=== PATIENT | female | born 1970 | race African-American/Black ===

== ENCOUNTER 2018-08-03 11:38 | Inpatient (IN) | payer OTHER ==
[2018-08-03 17:13] VITALS: BMI 25.4
--- NOTE | 2018-08-03 18:31 | HP ---
"COWS - Scale Resting Pulse: 1= [place] 81-100 Sweatin=Flushed/Facial Moisture Restless Observation: 1= Difficult to Sit Still Pupil Size: 1= Pupils >than Normal (Pupils at 3 mm) Bone or Joint Aches: 1= Mild Discomfort Runny Nose/ Eye Tearin= None GI Upset > 30mins: 2= Nausea/Diarrhea (Has cramps and nausea w/o diarrhea) Tremor Observation: 4= Gross Tremor/Twitching Yawning Observation: 0= None Anxiety or Irritability: 1=Feels Anxious/Irritable Goose Flesh Skin: 0=Smooth Skin COWS Score: 13 CIWA Score Nausea/Vomitin-Mild Nausea/No Vomiting Muscle Tremors: 4-Moderate,w/Arms Extend Anxiety: 3 Agitation: 1-Slight > Activity Paroxysmal Sweats: 3 (Moisture on brows w/o beads of sweat) Orientation: 0-Oriented Tacttile Disturbances: 0-None Auditory Disturbances: 0-None Visual Disturbances: 0-None Headache: 2-Mild CIWA-Ar Total Score: 14 - Admission Criteria [facility] Guidelines: Admission for Medically Managed Detox: Requires at least one of the followin. CIWA greater than 12 2. Seizures within the past 24 hours 3. Delirium tremens within the past 24 hours 4. Hallucinations within the past 24 hours 5. Acute intervention needed for co occurring medical disorder 6. Acute intervention needed for co occurring psychiatric disorder 7. Severe withdrawal that cannot be handled at a lower level of care (continued vomiting, continued diarrhea, abnormal vital signs) requiring intravenous medication and/or fluids 8. Admission [facility] Chief Complaint: Here for heroin and alcohol withdrawal. Allergies/Adverse Reactions: Allergies Allergy/AdvReac Type Severity Reaction Status Date / Time No Known Allergies Allergy Verified 08/03/18 17:16 History of Present Illness: Alcohol use disorder began at age 18. Heroin use disorder began at age 44. Cocaine use disorder began at age 44. Nicotine use disorder began at age 18. Does not want Nicotine patch. Will accept gum. Denies hx seizures, blackouts, overdoses. Denies significant PMH/PSH. Only length of sobriety has been while in detox or rehab. Search Terms: Annette Morales, 1970 Search Date: 08/03/2018 06:15:47 PM The Drug Utilization Report below displays all of the controlled substance prescriptions, if any, that your patient has filled in the last twelve months. The information displayed on this report is compiled from pharmacy submissions to the Department, and accurately reflects the information as submitted by the pharmacies. This report was requested by: Gregoria Hammer | Reference #: [id number] Others' Prescriptions Patient Name: Edwina Hoskins Date: 1970 Address: [address] [place] [address] Sex: Female Rx Written Rx Dispensed Drug Quantity Days Supply Prescriber Name 06/22/2018 06/22/2018 codeine-guaifen 10-100 mg/5 ml 118ml 12 Harish Rod T (EVERT-C) 05/31/2018 05/31/2018 alprazolam 0.25 mg tablet 60 30 Sabrina Conde NP 05/22/2018 05/23/2018 diphenoxylate-atropine 2.5-0.025 mg tablet 120 30 Orly Thomas 03/30/2018 04/06/2018 alprazolam 0.25 mg tablet 60 30 Sabrina Conde NP Patient Name: Edwina Hoskins Date: 1970 Address: [address] [place] [address] Sex: Female Rx Written Rx Dispensed Drug Quantity Days Supply Prescriber Name 03/09/2018 03/09/2018 alprazolam 0.25 mg tablet 30 30 Sabrina Conde NP 11/22/2017 12/02/2017 alprazolam 0.25 mg tablet 60 30 Sabrina Conde NP 10/17/2017 10/17/2017 codeine-guaifen 10-100 mg/5 ml 120ml 12 Nettie Llanes 09/07/2017 09/16/2017 alprazolam 0.25 mg tablet 30 30 Sabrina Conde NP Patient Name: Annette Morales Date: 1970 Address: [address] [address] Sex: Female Rx Written Rx Dispensed Drug Quantity Days Supply Prescriber Name 12/13/2017 12/20/2017 suboxone 8 mg-2 mg sl film 14 7 Soraida Subramanian, AMBER 12/13/2017 12/13/2017 suboxone 8 mg-2 mg sl film 14 7 Soraida Subramanian NP 12/12/2017 12/12/2017 suboxone 4 mg-1 mg sl film 6 3 Soraida Subramanian NP Exam Limitations: No Limitations - Ebola screening Have you traveled outside of the country in the last 21 days: No Have you had contact with anyone from an Ebola affected area: No Have you been sick,other than usual withdrawal symptoms: No Do you have a fever: No - Review of Systems Constitutional: Chills, Diaphoresis EENT: reports: Blurred Vision (Wears glasses) Respiratory: reports: No Symptoms reported Cardiac: reports: No Symptoms Reported GI: reports: Nausea (r/t withdrawal) : reports: No Symptoms Reported Musculoskeletal: reports: Back Pain (Chronic sharp low back pain when going from sitting to standing. Pain is a '8'. Worse since feeling withdrawal. Decreases with medication.), Other (achy bones r/t withdrawal) Integumentary: reports: No Symptoms Reported Neuro: reports: Tremors Endocrine: reports: No Symptoms Reported Hematology: reports: No Symptoms Reported Psychiatric: reports: Judgement Intact, Orientated x3, Agitated, Anxious ( States anxious. Denies thoughts of harming self or others.) Patient History - Patient Medical History Hx Anemia: No Hx Asthma: No Hx Chronic Obstructive Pulmonary Disease (COPD): No Hx Cardiac Disorders: No Hx Hypertension: No Hx Hypercholesterolemia: No Hx Seizures: No Hx Diabetes: No Hx Gastrointestinal Disorders: No Hx Liver Disease: No Hx Genitourinary Disorders: No Hx Sexually Transmitted Disorders: No Hx Renal Disease (ESRD): No Hx Human Immunodeficiency Virus (HIV): No (2018) Hx Hepatitis C: No Hx Depression: Yes Hx Suicide Attempt: No Hx Schizophrenia: No - Patient Surgical History Past Surgical History: Yes Hx Section: Yes (X2) Other Surgical History: Myomectomy 5 months ago [facility] - PPD History Previous Implant?: Yes Documented Results: Negative w/o proof Implanted On Prior [facility] Admission?: No PPD to be Administered?: Yes - Reproductive History Patient is a Female of Child Bearing Age (11 -55 yrs old): Yes Last Menstrual Period: 08/03/18 Patient : No ( States not sexually active) - Smoking Cessation Smoking history: Current every day smoker Have you smoked in the past 12 months: Yes Aproximately how many cigarettes per day: 10 Hx Chewing Tobacco Use: No Initiated information on smoking cessation: Yes 'Breaking Loose' booklet given: 08/03/18 - Substance & Tx. History Hx Alcohol Use: Yes Hx Substance Use: Yes Substance Use Type: Alcohol, Cocaine, Heroin Hx Substance Use Treatment: Yes (detox, rehab, ) - Substances Abused Heroin Route: Inhalation Frequency: Daily Amount used: 10-15 bags Age of first use: 44 Date of Last Use: 08/02/18 Alcohol Route: Oral Frequency: Daily Amount used: 2 pints-fifth Age of first use: 18 Date of Last Use: 08/02/18 Crack Route: Smoking Frequency: Daily Amount used: $50 Age of first use: 40 Date of Last Use: 08/03/18 Admission Physical Exam [facility] - Vital Signs Vital Signs: Vital Signs - 24 hr 08/03/18 17:10 Temperature 98.5 F Pulse Rate 85 Respiratory 20 Rate Blood Pressure 134/83 - Physical General Appearance: Yes: Mild Distress, Tremorous, Sweating, Anxious HEENTM: Yes: Hearing grossly Normal, MINA (Pupils = 3 mm), Pharynx Normal Respiratory: Yes: Chest Non-Tender, Lungs Clear, Normal Breath Sounds, No Respiratory Distress Neck: Yes: No masses,lesions,Nodules, Supple Breast: Yes: Breast Exam Deferred Cardiology: Yes: Regular Rhythm, Regular Rate, S1, S2 Abdominal: Yes: Flat, Soft, Increased Bowel Sounds Genitourinary: Yes: Within Normal Limits Back: Yes: Normal Inspection (No masses/protrusions palpated) Musculoskeletal: Yes: full range of Motion, Gait Steady Extremities: Yes: Normal Capillary Refill, Normal Range of Motion, Non-Tender, Tremors (gross tremors of hands upon extension) Neurological: Yes: fondant puff maker II-XII NML intact, Fully Oriented, Alert, Motor Strength 5/5, Normal Mood/Affect Integumentary: Yes: Normal Color, Dry, Warm Lymphatic: Yes: Within Normal Limits - Diagnostic (1) Alcohol dependence with uncomplicated withdrawal Current Visit: Yes Status: Acute (2) Opioid dependence with withdrawal Current Visit: Yes Status: Acute (3) Cocaine dependence, uncomplicated Current Visit: Yes Status: Chronic (4) Nicotine dependence, uncomplicated Current Visit: Yes Status: Chronic Qualifiers: Nicotine product type: cigarettes Qualified Code(s): F17.210 - Nicotine dependence, cigarettes, uncomplicated (5) Low back pain Current Visit: Yes Status: Acute Qualifiers: Chronicity: chronic Back pain laterality: midline Sciatica presence: without sciatica Qualified Code(s): M54.5 - Low back pain; G89.29 - Other chronic pain Cleared for Admission [facility] - Detox or Rehab [facility] Level of Care: Medically Managed Detox Regimen/Protocol: Methadone/Librium [facility] Breath Alcohol Content Breath Alcohol Content: 0 Urine Pregancy Test - Result Urine Test Results: Negative- NO Line Present Urine Drug Screen - Results Drug Screen Negative: No Urine Drug Screen Results: PREMA-Cocaine, OPI-Opiates, BZO-Benzodiazepines, MTD- Methadone, FEN-Fentanyl"
[2018-08-03] MEDS ORDERED: ACETAMINOPHEN 325 MG TABLET (FP) PO PRN (18:56)
[2018-08-03] MEDS ORDERED: MENTHOL/PHENOL 1 EACH UD MM PRN (18:56)
[2018-08-03] MEDS ORDERED: NICOTINE POLACRILEX 2 MG GUM BUC PRN (18:56)
[2018-08-03] MEDS ORDERED: MAGNESIUM HYDROX 2400MG/30ML ORAL SUSPENSION 30 ML CUP PO PRN (18:56)
[2018-08-03] MEDS ORDERED: chlordiazePOXIDE HCL 25 MG CAPSULE PO ONE (18:56)
[2018-08-03] MEDS ORDERED: MAG HYDROX/AL HYDROX/SIMETH 30 ML UNIT-DOSE CUP PO PRN (18:56)
[2018-08-03] MEDS ORDERED: LOPERAMIDE HCL 2 MG CAPSULE PO PRN (18:56)
[2018-08-03] MEDS ORDERED: METHADONE HCL 10 MG TABLET (FOR DETOX USE ONLY) PO ONE ×2 (18:56→23:00)
[2018-08-03] MEDS ORDERED: MAGNESIUM CITRATE 300 ML BOTTLE PO PRN (18:56)
[2018-08-03] MEDS ORDERED: IBUPROFEN 400 MG TABLET (FP) PO PRN (18:56)
[2018-08-03] MEDS: THIAMINE HCL 100 MG TABLET (FP) PO SCH (22:42)
[2018-08-03] MEDS: chlordiazePOXIDE HCL 25 MG CAPSULE PO SCH (22:44)
[2018-08-03 23:25] LABS: URINE APPEARANCE SLCLOUDY; URINE BILIRUBIN NEGATIVE (<2.0 mg/dL); URINE COLOR YELLOW; URINE GLUCOSE (UA) NEGATIVE (NEGATIVE); URINE KETONE NEGATIVE (NEGATIVE); URINE LEUK ESTERASE NEGATIVE (NEGATIVE); URINE NITRITE NEGATIVE (NEGATIVE); URINE PROTEIN NEGATIVE (NEGATIVE); URINE UROBILINOGEN NEGATIVE mg/dL (0.2-1.0)
[2018-08-03 23:30] LABS: EPI CELLS RARE /HPF (FEW); URINE BACTERIA RARE /hpf (NONE SEEN); URINE MUCUS RARE
[2018-08-04] MEDS: chlordiazePOXIDE HCL 25 MG CAPSULE PO SCH ×4 (05:51→22:17)
[2018-08-04] MEDS: hydrOXYzine PAMOATE 50 MG CAPSULE (FP) PO PRN ×3 (05:54→22:18)
[2018-08-04] MEDS ORDERED: METHADONE HCL 10 MG TABLET (FOR DETOX USE ONLY) PO SCH (10:00)
[2018-08-04] MEDS: PRENATAL VITAMINS W/ FOLIC ACID TABLET (FP) PO SCH (10:14)
[2018-08-04 11:20] LABS: ALBUMIN 2.6 g/dl (3.4-5.0); ALK PHOS 91 U/L (45-117); ANION GAP 6 MMOL/L (8-16); BILIRUBIN,TOTAL 0.3 mg/dL (0.2-1); BLOOD UREA NITROGEN 15 mg/dL (7-18); CALCIUM 8.5 mg/dL (8.5-10.1); CHLORIDE 104 mmol/L (98-107); CO2 28 mmol/L (21-32); CREATININE 0.7 mg/dL (0.55-1.3); GLUCOSE,RANDOM 213 mg/dL (74-106); POTASSIUM 4.2 mmol/L (3.5-5.1); SGOT/AST 29 U/L (15-37); SGPT/ALT 63 U/L (13-61); SODIUM 138 mmol/L (136-145); TOT PROT 6.6 g/dl (6.4-8.2)
[2018-08-04 11:30] LABS: HEMATOCRIT 32.5 % (32.4-45.2); HEMOGLOBIN 10.2 GM/dL (10.7-15.3); MCH 25.8 pg (25.7-33.7); MCHC 31.4 g/dl (32.0-36.0); MEAN CELL VOLUME 82.3 fl (80-96); MEAN PLT VOLUME 9.4 fl (7.5-11.1); PLATELET COUNT 181 K/MM3 (134-434); RBC 3.95 M/mm3 (3.60-5.2); RDW 19.1 % (11.6-15.6); WHITE BLOOD COUNT 3.1 K/mm3 (4.0-10.0)
[2018-08-04] MEDS: chlordiazePOXIDE HCL 25 MG CAPSULE PO PRN (13:14)
--- NOTE | 2018-08-04 14:56 | CONSULT ---
[facility] Psychiatric Consult - Data Date of interview: 08/04/18 Admission source: [facility] Identifying data: First admission to [facility] for this 47 y/o AA female seeking detoxification treatment, on , for heroin, alcohol and cocaine dependence. Patient is single, a mother of one, homeless, unemployed and deprived of income. Substance Abuse History: Confirmed by the patient in my interview. Details in current [facility] report as follows : Smoking history: Current every day smoker. Have you smoked in the past 12 months: Yes. Aproximately how many cigarettes per day: 10. Hx Chewing Tobacco Use: No. Initiated information on smoking cessation: Yes. 'Breaking Loose' booklet given: 08/03/18. - Substance & Tx. History. Hx Alcohol Use: Yes. Hx Substance Use: Yes. Substance Use Type: Alcohol, Cocaine, Heroin. Hx Substance Use Treatment: Yes (detox, rehab, ). - Substances Abused. Heroin. Route: Inhalation. Frequency: Daily. Amount used: 10-15 bags. Age of first use: 44. Date of Last Use: 08/02/18. Alcohol. Route: Oral. Frequency: Daily. Amount used: 2 pints-fifth. Age of first use: 18. Date of Last Use: 08/02/18. Crack. Route: Smoking. Frequency: Daily. Amount used: $50. Age of first use: 40. Date of Last Use: 08/03/18 Medical History: History of two sections and recent myomectomy. Psychiatric History: No reported history of psychiatric hospitalizations. Patient states that she has been diagnosed with MDD + Anxiety Disorder. No connection with psychiatric OPD care providers. Ms Morales relies on her primary care physician for refills of seroquel (100 mg/hs). No history of suicide attempts. Physical/Sexual Abuse/Trauma History: Patient declines to discuss this domain. Additional Comment: Urine Drug Screen Results: PREMA-Cocaine, OPI-Opiates, BZO- Benzodiazepines, MTD-Methadone, FEN-Fentanyl. Noted. Mental Status Exam - Mental Status Exam Alert and Oriented to: Time, Place, Person Cognitive Function: Good Patient Appearance: Unkempt, Disheveled Mood: Nervous, Withdrawn, Anxious Affect: Mood Congruent, Constricted Patient Behavior: Fatigued, Cooperative Speech Pattern: Clear, Appropriate Voice Loudness: Normal Thought Process: Intact, Goal Oriented Thought Disorder: Not Present Hallucinations: Denies Suicidal Ideation: Denies Homicidal Ideation: Denies Insight/Judgement: Poor Sleep: Poorly, Difficulty falling asleep Appetite: Good Muscle strength/Tone: Normal Gait/Station: Normal Psychiatric Findings - Problem List ([place] 1, 2,3) (1) Alcohol dependence with uncomplicated withdrawal Current Visit: Yes Status: Acute (2) Opioid dependence with withdrawal Current Visit: Yes Status: Acute (3) Cocaine dependence, uncomplicated Current Visit: Yes Status: Acute (4) Nicotine dependence, uncomplicated Current Visit: Yes Status: Acute Qualifiers: Nicotine product type: cigarettes Qualified Code(s): F17.210 - Nicotine dependence, cigarettes, uncomplicated (5) Substance induced mood disorder Current Visit: Yes Status: Acute (6) Insomnia Current Visit: Yes Status: Acute - Initial Treatment Plan Initial Treatment Plan: Psychoeducation. Sleep hygiene. Detoxification. Psychotherapy (supportive, group). NA/AA meetings recommended. Patient is made aware of the current FDA-approved formulations for relapse prevention and she is encouraged to enroll in psychiatric aftercare + substance abuse program. Verbalizes NO interest. Motivational sessions will continue throughout hospital course. Seroquel 100 mg po hs at patient's specific request. Ordered. Side effects/benefits discussed with the patient. Consent (verbal) : given. Observation.
--- NOTE | 2018-08-04 15:07 | PN ---
[facility] CIWA - CIWA Score Nausea/Vomitin-No Nausea/No Vomiting Muscle Tremors: None Anxiety: 5 Agitation: 5 Paroxysmal Sweats: 2 Orientation: 0-Oriented Tacttile Disturbances: 0-None Auditory Disturbances: 0-None Visual Disturbances: 0-None Headache: 0-None Present CIWA-Ar Total Score: 12 S COWS - Scale Resting Pulse: 0= [place] 80 or Below Sweatin=Flushed/Facial Moisture Restless Observation: 1= Difficult to Sit Still Pupil Size: 0= Normal to Room Light Bone or Joint Aches: 2= Severe Diffuse Aches Runny Nose/ Eye Tearin= None GI Upset > 30mins: 0= None Tremor Observation of Outstretched Hands: 0= None Yawning Observation: 0= None Anxiety or Irritability: 2=Irritable/Anxious Goose Flesh Skin: 0=Smooth Skin COWS Score: 7 [facility] Progress Note (SOAP) Subjective: PATIENT C/O BODY ACHES, RESTLESSNESS, SWEATING AND ANXIETY Objective: 08/04/18 15:05 Laboratory Tests 08/03/18 08/04/18 08/04/18 23:10 07:30 07:30 WBC 3.1 L RBC 3.95 Hgb 10.2 L Hct 32.5 MCV 82.3 MCH 25.8 MCHC 31.4 L RDW 19.1 H Plt Count 181 MPV 9.4 Sodium 138 Potassium 4.2 Chloride 104 Carbon Dioxide 28 Anion Gap 6 L BUN 15 Creatinine 0.7 Creat Clearance w eGFR > 60 Random Glucose 213 H Calcium 8.5 Total Bilirubin 0.3 AST 29 ALT 63 H Alkaline Phosphatase 91 Total Protein 6.6 Albumin 2.6 L Urine Color Yellow Urine Appearance Slcloudy Urine pH 6.0 Ur Specific [place] 1.023 Urine Protein Negative Urine Glucose (UA) Negative Urine Ketones Negative Urine Blood 2+ H Urine Nitrite Negative Urine Bilirubin Negative Urine Urobilinogen Negative Ur Leukocyte Esterase Negative Urine WBC (Auto) 7 Urine RBC (Auto) 57 Ur Epithelial Cells Rare Urine Bacteria Rare Urine Mucus Rare RPR Titer 08/04/18 07:30 WBC RBC Hgb Hct MCV MCH MCHC RDW Plt Count MPV Sodium Potassium Chloride Carbon Dioxide Anion Gap BUN Creatinine Creat Clearance w eGFR Random Glucose Calcium Total Bilirubin AST ALT Alkaline Phosphatase Total Protein Albumin Urine Color Urine Appearance Urine pH Ur Specific [place] Urine Protein Urine Glucose (UA) Urine Ketones Urine Blood Urine Nitrite Urine Bilirubin Urine Urobilinogen Ur Leukocyte Esterase Urine WBC (Auto) Urine RBC (Auto) Ur Epithelial Cells Urine Bacteria Urine Mucus RPR Titer Nonreactive PE: SKIN WARM AND MOIST ALERT AND ORIENTED X 3 EXT FULL ROM, NO EDEMA AMB AD RADHA IRRITABLE/YELLING AT STAFF/ANXIOUS Assessment: 08/04/18 15:07 WITHDRAWAL SX Plan: CONITNUE DETOX ENCOURAGE ORAL FLUIDS CONTINUE TO MONITOR
[2018-08-04] MEDS: THIAMINE HCL 100 MG TABLET (FP) PO SCH (22:17)
[2018-08-04] MEDS: MELATONIN 5 MG TABLETS PO PRN (22:17)
[2018-08-05] MEDS: chlordiazePOXIDE HCL 25 MG CAPSULE PO SCH ×3 (05:46→17:24)
[2018-08-05] MEDS: PRENATAL VITAMINS W/ FOLIC ACID TABLET (FP) PO SCH (10:21)
[2018-08-05] MEDS: METHADONE HCL 5 MG TABLET (FOR DETOX USE ONLY) PO SCH (10:22)
[2018-08-05] MEDS: hydrOXYzine PAMOATE 50 MG CAPSULE (FP) PO PRN (12:44)
--- NOTE | 2018-08-05 14:03 | PN ---
[facility] Progress Note Note: Psychiatrist composition tile layer notes: As per nursing report patient started on: Seroquel 100mg po qh
--- NOTE | 2018-08-05 14:17 | PN ---
[facility] CIWA - CIWA Score Nausea/Vomitin-No Nausea/No Vomiting Muscle Tremors: 3 Anxiety: 2 Agitation: 2 Paroxysmal Sweats: 1-Minimal Palms Moist Orientation: 0-Oriented Tacttile Disturbances: 1-Very Mild Itch/Numbness Auditory Disturbances: 0-None Visual Disturbances: 0-None Headache: 1-Very Mild CIWA-Ar Total Score: 10 [facility] COWS - Scale Resting Pulse: 1= [place] 81-100 Sweatin= Chills/Flushing Restless Observation: 1= Difficult to Sit Still Pupil Size: 0= Normal to Room Light Bone or Joint Aches: 1= Mild Discomfort Runny Nose/ Eye Tearin= Nasal Congestion GI Upset > 30mins: 1= Stomach Cramp Tremor Observation of Outstretched Hands: 1= Tremor [place], Not Seen Yawning Observation: 1= 1-2x During Session Anxiety or Irritability: 1=Feels Anxious/Irritable Goose Flesh Skin: 0=Smooth Skin COWS Score: 9 S Progress Note (SOAP) Subjective: sweat tremor restlessness body aches back pain muscle cramp Objective: 08/05/18 14:17 Vital Signs Temperature 97.1 F L 08/05/18 09:46 Pulse Rate 73 08/05/18 09:46 Respiratory Rate 16 08/05/18 09:46 Blood Pressure 148/99 08/05/18 09:46 O2 Sat by Pulse Oximetry (%) Laboratory Last Values WBC 3.1 K/mm3 (4.0-10.0) L 08/04/18 07:30 RBC 3.95 M/mm3 (3.60-5.2) 08/04/18 07:30 Hgb 10.2 GM/dL (10.7-15.3) L 08/04/18 07:30 Hct 32.5 % (32.4-45.2) 08/04/18 07:30 MCV 82.3 fl (80-96) 08/04/18 07:30 MCH 25.8 pg (25.7-33.7) 08/04/18 07:30 MCHC 31.4 g/dl (32.0-36.0) L 08/04/18 07:30 RDW 19.1 % (11.6-15.6) H 08/04/18 07:30 Plt Count 181 K/MM3 (134-434) 08/04/18 07:30 MPV 9.4 fl (7.5-11.1) 08/04/18 07:30 Sodium 138 mmol/L (136-145) 08/04/18 07:30 Potassium 4.2 mmol/L (3.5-5.1) 08/04/18 07:30 Chloride 104 mmol/L (98-107) 08/04/18 07:30 Carbon Dioxide 28 mmol/L (21-32) 08/04/18 07:30 Anion Gap 6 MMOL/L (8-16) L 08/04/18 07:30 BUN 15 mg/dL (7-18) 08/04/18 07:30 Creatinine 0.7 mg/dL (0.55-1.3) 08/04/18 07:30 Creat Clearance w eGFR > 60 (>60) 08/04/18 07:30 Random Glucose 213 mg/dL (74-106) H 08/04/18 07:30 Calcium 8.5 mg/dL (8.5-10.1) 08/04/18 07:30 Total Bilirubin 0.3 mg/dL (0.2-1) 08/04/18 07:30 AST 29 U/L (15-37) 08/04/18 07:30 ALT 63 U/L (13-61) H 08/04/18 07:30 Alkaline Phosphatase 91 U/L (45-117) 08/04/18 07:30 Total Protein 6.6 g/dl (6.4-8.2) 08/04/18 07:30 Albumin 2.6 g/dl (3.4-5.0) L 08/04/18 07:30 Urine Color Yellow 08/03/18 23:10 Urine Appearance Slcloudy 08/03/18 23:10 Urine pH 6.0 (5.0-8.0) 08/03/18 23:10 Ur Specific [place] 1.023 (1.010-1.035) 08/03/18 23:10 Urine Protein Negative (NEGATIVE) 08/03/18 23:10 Urine Glucose (UA) Negative (NEGATIVE) 08/03/18 23:10 Urine Ketones Negative (NEGATIVE) 08/03/18 23:10 Urine Blood 2+ (NEGATIVE) H 08/03/18 23:10 Urine Nitrite Negative (NEGATIVE) 08/03/18 23:10 Urine Bilirubin Negative (<2.0 mg/dL) 08/03/18 23:10 Urine Urobilinogen Negative mg/dL (0.2-1.0) 08/03/18 23:10 Ur Leukocyte Esterase Negative (NEGATIVE) 08/03/18 23:10 Urine WBC (Auto) 7 /hpf (3-5) 08/03/18 23:10 Urine RBC (Auto) 57 /hpf (0-3) 08/03/18 23:10 Ur Epithelial Cells Rare /HPF (FEW) 08/03/18 23:10 Urine Bacteria Rare /hpf (NONE SEEN) 08/03/18 23:10 Urine Mucus Rare 08/03/18 23:10 RPR Titer Nonreactive (NONREACTIVE) 08/04/18 07:30 lab noted Assessment: 08/05/18 14:21 withdrawal sx Plan: continue detox
[2018-08-05] MEDS: chlordiazePOXIDE HCL 25 MG CAPSULE PO PRN (14:34)
--- NOTE | 2018-08-05 19:32 | EKG ---
Test Reason : Blood Pressure : / mmHG Vent. Rate : 085 BPM Atrial Rate : 085 BPM P-R Int : 142 ms QRS Dur : 076 ms QT Int : 376 ms P-R-T Axes : 066 005 007 degrees QTc Int : 447 ms NORMAL SINUS RHYTHM NORMAL ECG NO PREVIOUS ECGS AVAILABLE Confirmed by MONSE RAMIREZ MD ([id number]) on 08/05/2018 7:32:31 PM Referred By: Confirmed By:MONSE RAMIREZ MD
[2018-08-05] MEDS ORDERED: QUEtiapine FUMARATE 50 MG TABLET PO SCH (22:00)
[2018-08-05] MEDS: THIAMINE HCL 100 MG TABLET (FP) PO SCH (22:15)
[2018-08-05] MEDS: chlordiazePOXIDE 5 MG CAPSULE PO SCH (22:16)
[2018-08-05] MEDS: MELATONIN 5 MG TABLETS PO PRN (22:16)
[2018-08-06] MEDS: chlordiazePOXIDE 5 MG CAPSULE PO SCH ×2 (06:30→11:15)
--- NOTE | 2018-08-06 09:19 | DS ---
[facility] Detox Discharge Summary Admission Date: 08/03/18 - History Present History: Alcohol Dependence, Cocaine Dependence, Opioid Dependence - Physical Exam Results Vital Signs: Vital Signs Temperature 97.9 F 08/06/18 07:36 Pulse Rate 73 08/06/18 07:36 Respiratory Rate 18 08/06/18 07:36 Blood Pressure 106/61 08/06/18 07:36 O2 Sat by Pulse Oximetry (%) - Treatment Hospital Course: Discharged Condition Good - Medication Discharge Medications: Ambulatory Orders Quetiapine Fumarate [Seroquel -] 100 mg PO HS 08/03/18 - Diagnosis (1) Alcohol dependence with uncomplicated withdrawal Current Visit: Yes Status: Acute (2) Cocaine dependence, uncomplicated Current Visit: Yes Status: Acute (3) Insomnia Current Visit: Yes Status: Acute (4) Low back pain Current Visit: Yes Status: Acute Qualifiers: Chronicity: chronic Back pain laterality: midline Sciatica presence: without sciatica Qualified Code(s): M54.5 - Low back pain; G89.29 - Other chronic pain (5) Nicotine dependence, uncomplicated Current Visit: Yes Status: Acute Qualifiers: Nicotine product type: cigarettes Qualified Code(s): F17.210 - Nicotine dependence, cigarettes, uncomplicated (6) Opioid dependence with withdrawal Current Visit: Yes Status: Acute (7) Substance induced mood disorder Current Visit: Yes Status: Acute - AMA Did Patient Leave Against Medical Advice: Yes (refused continued tx; pt states going home)
[2018-08-06 09:48] VITALS: BP 118/70; PULSE 105; TEMP 98.2
[2018-08-06] MEDS: METHADONE HCL 5 MG TABLET (FOR DETOX USE ONLY) PO SCH (11:15)
[2018-08-06] MEDS: PRENATAL VITAMINS W/ FOLIC ACID TABLET (FP) PO SCH (11:15)
[2018-08-06] MEDS ORDERED: chlordiazePOXIDE HCL 10 MG CAPSULE PO SCH (23:00)
[2018-08-07] MEDS ORDERED: METHADONE HCL 10 MG TABLET (FOR DETOX USE ONLY) PO SCH (10:00)
[2018-08-08] MEDS ORDERED: METHADONE HCL 5 MG TABLET (FOR DETOX USE ONLY) PO SCH (06:00)
== END 2018-08-06 09:45 | disposition left against medical advice (07) | DRG 770 ==
LOC: YASAS 11:38 → Y6N 18:07
PROC: HZ2ZZZZ Detoxification Services for Substance Abuse Treatment (ICD-10-PCS; principal; 2018-08-03)
DX: F11.23 Opioid dependence with withdrawal (principal); F10.230 Alcohol dependence with withdrawal, uncomplicated; F14.20 Cocaine dependence, uncomplicated; F17.210 Nicotine dependence, cigarettes, uncomplicated; F19.24 Other psychoactive substance dependence with psychoactive substance-induced mood disorder; F32.9 Major depressive disorder, single episode, unspecified; G47.00 Insomnia, unspecified; M54.5 Low back pain; G89.29 Other chronic pain; Z59.0 Homelessness
CPT/HCPCS: 36415; 80053; 81003; 81015; 85027; 86593; 93005; 93010

== ENCOUNTER 2018-10-09 08:18 | Inpatient (IN) | payer OTHER ==
[2018-10-09 08:47] VITALS: BMI 24.3
--- NOTE | 2018-10-09 09:14 | HP ---
COWS - Scale Resting Pulse: 0= [place] 80 or Below Sweatin= No chills or Flushing Restless Observation: 1= Difficult to Sit Still Pupil Size: 0= Normal to Room Light Bone or Joint Aches: 2= Severe Diffuse Aches Runny Nose/ Eye Tearin= Runny Nose/Eyes GI Upset > 30mins: 1= Stomach Cramp Tremor Observation: 0= None Yawning Observation: 0= None Anxiety or Irritability: 2=Irritable/Anxious Goose Flesh Skin: 0=Smooth Skin COWS Score: 8 CIWA Score Nausea/Vomitin-Mild Nausea/No Vomiting Muscle Tremors: 2 Anxiety: 4-Mod. Anxious/Guarded Agitation: 1-Slight > Activity Paroxysmal Sweats: No Perspiration Orientation: 0-Oriented Tacttile Disturbances: 0-None Auditory Disturbances: 0-None Visual Disturbances: 0-None Headache: 0-None Present CIWA-Ar Total Score: 8 - Admission Criteria [facility]ASAS Guidelines: Admission for Medically Managed Detox: Requires at least one of the followin. CIWA greater than 12 2. Seizures within the past 24 hours 3. Delirium tremens within the past 24 hours 4. Hallucinations within the past 24 hours 5. Acute intervention needed for co occurring medical disorder 6. Acute intervention needed for co occurring psychiatric disorder 7. Severe withdrawal that cannot be handled at a lower level of care (continued vomiting, continued diarrhea, abnormal vital signs) requiring intravenous medication and/or fluids 8. Admission [facility] Allergies/Adverse Reactions: Allergies Allergy/AdvReac Type Severity Reaction Status Date / Time No Known Allergies Allergy Verified 10/09/18 09:35 History of Present Illness: patient here requesting detox from opiate use , reports latest use this morning , current symptoms as above , reports 1-2 bundles/ day denies ivdu , first age of use 46 , minimal sobriety since only while in detox . etoh use ; 1/5 /day , first age of use 18 , progressively increased amount , denies blackouts , seizures, falls, + tremors if not drinking , starts drinking in the morning to stop tremors , latest use yesterday morning , current symptoms as above , longest sobriety 1 month w/ using cannabis . cocaine : crack cocaine 70 $ / day since age 46 tobacco : 1/2 ppd utox : + delaney, fen , mop, mtd, bzo reports took illicit methadone 2 d " a capful from a friend " , denies benzo use , admits to fentanyl use . PMHx : anemia PSHx : C-sx x 2 ,ut fibroids LMP Aug 2018 x 3 weeks DUB saw vegetable thinner given meds x 10 d . [facility] child shortly after , states was born with heart murmur had surgery at age 2 days , meningitis age 6 mo. 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 has 13 y.o. daughter currently living w/ maternal GM in [place] , finances habit from family and friends Exam Limitations: No Limitations - Ebola screening Have you traveled outside of the country in the last 21 days: No Have you had contact with anyone from an Ebola affected area: No Have you been sick,other than usual withdrawal symptoms: No Do you have a fever: No - Review of Systems Constitutional: See HPI EENT: reports: Other (glasses , denies dyspahgia) Respiratory: reports: No Symptoms reported Cardiac: reports: No Symptoms Reported GI: reports: See HPI : reports: No Symptoms Reported Musculoskeletal: reports: See HPI Integumentary: reports: Other (left 3rd finger abrasion) Neuro: reports: See HPI Endocrine: reports: Other (gdm) Hematology: reports: Anemia Psychiatric: reports: Orientated x3, Anxious, Depressed Patient History - Patient Medical History Hx Anemia: No Hx Asthma: No Hx Chronic Obstructive Pulmonary Disease (COPD): No Hx Cardiac Disorders: No Hx Hypertension: No Hx Hypercholesterolemia: No Hx Seizures: No Hx Diabetes: No Hx Gastrointestinal Disorders: No Hx Liver Disease: No Hx Genitourinary Disorders: No Hx Sexually Transmitted Disorders: No Hx Renal Disease (ESRD): No Hx Human Immunodeficiency Virus (HIV): No (2018) Hx Hepatitis C: No Hx Depression: Yes Hx Suicide Attempt: No Hx Schizophrenia: No - Patient Surgical History Past Surgical History: Yes Hx Section: Yes (X2) Other Surgical History: Myomectomy 5 months ago [facility] - PPD History Date: 08/05/18 - Reproductive History Last Menstrual Period: 08/03/18 - Smoking Cessation Smoking history: Current every day smoker Have you smoked in the past 12 months: Yes Aproximately how many cigarettes per day: 10 Hx Chewing Tobacco Use: No Initiated information on smoking cessation: No - Substances Abused Heroin Route: Inhalation Frequency: Daily Amount used: 20 bags Age of first use: 46 Date of Last Use: 10/09/18 Crack Route: Smoking Frequency: 3-6 times per week Amount used: $70 Age of first use: 46 Date of Last Use: 10/09/18 Alcohol-vodka/beer Route: Oral Frequency: Daily Amount used: fifth/3 (12 oz.) Age of first use: 18 Date of Last Use: 10/08/18 Family Disease History - Family Disease History Family Disease History: Diabetes: Mother (htn), Brother, Sister, Other: Father ( d. AIDS unknown age ), Mother, Son (d. heart defect at ), Daughter ( age 13 ) Admission Physical Exam [facility] - Vital Signs Vital Signs: Vital Signs - 24 hr 10/09/18 08:44 Temperature 97.9 F Pulse Rate 76 Respiratory 17 Rate Blood Pressure 121/75 - Physical General Appearance: Yes: Mild Distress, Anxious HEENTM: Yes: EOMI, Hearing grossly Normal, Normocephalic, Normal Voice, Nasal Congestion, Rhinorrhea, Other (nasal mucosa erythema) Respiratory: Yes: Chest Non-Tender, Lungs Clear, Normal Breath Sounds Neck: Yes: No masses,lesions,Nodules, Trachea in good position Breast: Yes: Breast Exam Deferred Cardiology: Yes: Regular Rhythm, Regular Rate, S1, S2, Tachycardia Abdominal: Yes: Normal Bowel Sounds, Soft Genitourinary: Yes: Within Normal Limits Back: Yes: Normal Inspection Musculoskeletal: Yes: full range of Motion Extremities: Yes: Normal Capillary Refill, Normal Range of Motion Neurological: Yes: Fully Oriented, Alert, Motor Strength 5/5 Integumentary: Yes: Normal Color, Dry, Warm - Diagnostic (1) Alcohol dependence with uncomplicated withdrawal Current Visit: No Status: Acute (2) Cocaine dependence, uncomplicated Current Visit: No Status: Chronic (3) Nicotine dependence, uncomplicated Current Visit: No Status: Chronic Qualifiers: Nicotine product type: cigarettes Qualified Code(s): F17.210 - Nicotine dependence, cigarettes, uncomplicated (4) Opioid dependence with withdrawal Current Visit: No Status: Acute BHS Breath Alcohol Content Breath Alcohol Content: 0 Urine Pregancy Test - Result Urine Test Results: Negative- NO Line Present Urine Drug Screen - Results Drug Screen Negative: No Urine Drug Screen Results: DELANEY-Cocaine, OPI-Opiates, BZO-Benzodiazepines, MTD- Methadone, FEN-Fentanyl
[2018-10-09] MEDS ORDERED: MAGNESIUM HYDROX 2400MG/30ML ORAL SUSPENSION 30 ML CUP PO PRN (09:27)
[2018-10-09] MEDS ORDERED: ACETAMINOPHEN 325 MG TABLET (FP) PO PRN (09:27)
[2018-10-09] MEDS ORDERED: MAGNESIUM CITRATE 300 ML BOTTLE PO PRN (09:27)
[2018-10-09] MEDS ORDERED: MENTHOL/PHENOL 1 EACH UD MM PRN (09:27)
[2018-10-09] MEDS ORDERED: IBUPROFEN 400 MG TABLET (FP) PO PRN (09:27)
[2018-10-09] MEDS ORDERED: NICOTINE POLACRILEX 2 MG GUM BUC PRN (09:27)
[2018-10-09] MEDS ORDERED: MAG HYDROX/AL HYDROX/SIMETH 30 ML UNIT-DOSE CUP PO PRN (09:27)
[2018-10-09] MEDS ORDERED: guaiFENesin/D-METHORPHAN HB 10 ML UNIT-DOSE CUPS PO PRN (09:27)
[2018-10-09] MEDS ORDERED: P-EPHED 60MG/TRIPROLIDI 2.5MG TABLET PO PRN (09:27)
[2018-10-09] MEDS ORDERED: METHADONE HCL 10 MG TABLET (FOR DETOX USE ONLY) PO ONE ×2 (11:00→23:00)
[2018-10-09] MEDS: PRENATAL VITAMINS W/ FOLIC ACID TABLET (FP) PO SCH (11:05)
[2018-10-09] MEDS: chlordiazePOXIDE HCL 25 MG CAPSULE PO PRN (11:56)
[2018-10-09] MEDS: hydrOXYzine PAMOATE 50 MG CAPSULE (FP) PO PRN ×2 (12:24→21:28)
[2018-10-09] MEDS: chlordiazePOXIDE HCL 25 MG CAPSULE PO SCH ×2 (17:17→22:06)
--- NOTE | 2018-10-09 18:19 | EKG ---
Test Reason : Blood Pressure : / mmHG Vent. Rate : 078 BPM Atrial Rate : 078 BPM P-R Int : 144 ms QRS Dur : 076 ms QT Int : 394 ms P-R-T Axes : 061 003 015 degrees QTc Int : 449 ms NORMAL SINUS RHYTHM NORMAL ECG WHEN COMPARED WITH ECG OF 03-AUG-2018 20:21, NO SIGNIFICANT CHANGE WAS FOUND Confirmed by MD URSULA, CORTES ([id number]) on 10/09/2018 6:18:34 PM Referred By: Confirmed By:CORTES VERGARA MD
[2018-10-09] MEDS ORDERED: MELATONIN 5 MG TABLETS PO PRN (22:00)
[2018-10-09] MEDS ORDERED: THIAMINE HCL 100 MG TABLET (FP) PO SCH (22:00)
[2018-10-09] MEDS ORDERED: QUEtiapine FUMARATE 100 MG TABLET (FP) PO SCH (22:00)
[2018-10-10] MEDS: chlordiazePOXIDE HCL 25 MG CAPSULE PO SCH ×2 (05:36→10:17)
[2018-10-10] MEDS: chlordiazePOXIDE HCL 25 MG CAPSULE PO PRN ×2 (08:54→14:43)
[2018-10-10] MEDS ORDERED: METHADONE HCL 10 MG TABLET (FOR DETOX USE ONLY) PO SCH (10:00)
[2018-10-10] MEDS: PRENATAL VITAMINS W/ FOLIC ACID TABLET (FP) PO SCH (10:17)
[2018-10-10 10:30] LABS: HEMATOCRIT 30.7 % (32.4-45.2); HEMOGLOBIN 10.2 GM/dL (10.7-15.3); MCH 28.2 pg (25.7-33.7); MCHC 33.1 g/dl (32.0-36.0); MEAN CELL VOLUME 85.2 fl (80-96); MEAN PLT VOLUME 10.1 fl (7.5-11.1); PLATELET COUNT 177 K/MM3 (134-434); RBC 3.61 M/mm3 (3.60-5.2); RDW 17.2 % (11.6-15.6); WHITE BLOOD COUNT 2.8 K/mm3 (4.0-10.0)
[2018-10-10 10:39] LABS: ALBUMIN 2.5 g/dl (3.4-5.0); ALK PHOS 76 U/L (45-117); ANION GAP 7 MMOL/L (8-16); BILIRUBIN,TOTAL 0.1 mg/dL (0.2-1); BLOOD UREA NITROGEN 12 mg/dL (7-18); CALCIUM 8.3 mg/dL (8.5-10.1); CHLORIDE 108 mmol/L (98-107); CO2 25 mmol/L (21-32); CREATININE 0.6 mg/dL (0.55-1.3); GLUCOSE,RANDOM 126 mg/dL (74-106); POTASSIUM 4.3 mmol/L (3.5-5.1); SGOT/AST 16 U/L (15-37); SGPT/ALT 22 U/L (13-61); SODIUM 140 mmol/L (136-145); TOT PROT 6.1 g/dl (6.4-8.2)
[2018-10-10] MEDS: hydrOXYzine PAMOATE 50 MG CAPSULE (FP) PO PRN (12:15)
--- NOTE | 2018-10-10 14:02 | PN ---
[facility] CIWA - CIWA Score Nausea/Vomitin-Mild Nausea/No Vomiting Muscle Tremors: 3 Anxiety: 2 Agitation: 2 Paroxysmal Sweats: 1-Minimal Palms Moist Orientation: 1-Uncertain about Date Tacttile Disturbances: 1-Very Mild Itch/Numbness Auditory Disturbances: 0-None Visual Disturbances: 0-None Headache: 1-Very Mild CIWA-Ar Total Score: 12 BHS COWS - Scale Resting Pulse: 0= [place] 80 or Below Sweatin= Chills/Flushing Restless Observation: 1= Difficult to Sit Still Pupil Size: 0= Normal to Room Light Bone or Joint Aches: 2= Severe Diffuse Aches Runny Nose/ Eye Tearin= Nasal Congestion GI Upset > 30mins: 2= Nausea/Diarrhea Tremor Observation of Outstretched Hands: 2= Slight Tremor Visible Yawning Observation: 1= 1-2x During Session Anxiety or Irritability: 2=Irritable/Anxious Goose Flesh Skin: 0=Smooth Skin COWS Score: 12 S Progress Note (SOAP) Subjective: body aches tremor sweating joints pain anxiety restlessness Objective: 10/10/18 14:01 Vital Signs Temperature 97.4 F L 10/10/18 13:53 Pulse Rate 100 H 10/10/18 13:53 Respiratory Rate 16 10/10/18 13:53 Blood Pressure 109/69 10/10/18 13:53 O2 Sat by Pulse Oximetry (%) Laboratory Last Values WBC 2.8 K/mm3 (4.0-10.0) L 10/10/18 07:00 RBC 3.61 M/mm3 (3.60-5.2) 10/10/18 07:00 Hgb 10.2 GM/dL (10.7-15.3) L 10/10/18 07:00 Hct 30.7 % (32.4-45.2) L 10/10/18 07:00 MCV 85.2 fl (80-96) 10/10/18 07:00 MCH 28.2 pg (25.7-33.7) 10/10/18 07:00 MCHC 33.1 g/dl (32.0-36.0) 10/10/18 07:00 RDW 17.2 % (11.6-15.6) H 10/10/18 07:00 Plt Count 177 K/MM3 (134-434) 10/10/18 07:00 MPV 10.1 fl (7.5-11.1) 10/10/18 07:00 Sodium 140 mmol/L (136-145) 10/10/18 07:00 Potassium 4.3 mmol/L (3.5-5.1) 10/10/18 07:00 Chloride 108 mmol/L (98-107) H 10/10/18 07:00 Carbon Dioxide 25 mmol/L (21-32) 10/10/18 07:00 Anion Gap 7 MMOL/L (8-16) L 10/10/18 07:00 BUN 12 mg/dL (7-18) 10/10/18 07:00 Creatinine 0.6 mg/dL (0.55-1.3) 10/10/18 07:00 Creat Clearance w eGFR > 60 (>60) 10/10/18 07:00 Random Glucose 126 mg/dL (74-106) H 10/10/18 07:00 Calcium 8.3 mg/dL (8.5-10.1) L 10/10/18 07:00 Total Bilirubin 0.1 mg/dL (0.2-1) L 10/10/18 07:00 AST 16 U/L (15-37) 10/10/18 07:00 ALT 22 U/L (13-61) 10/10/18 07:00 Alkaline Phosphatase 76 U/L (45-117) 10/10/18 07:00 Total Protein 6.1 g/dl (6.4-8.2) L 10/10/18 07:00 Albumin 2.5 g/dl (3.4-5.0) L 10/10/18 07:00 RPR Titer Nonreactive (NONREACTIVE) 10/10/18 07:00 lab noted repeate cbc with diff 10/10/18 14:04 strong recommend the patient follow up with her primary care provider or hemotology for low wbc 10/10/18 14:04 Assessment: 10/10/18 14:04 withdrawal sx Plan: continue detox
[2018-10-10] MEDS ORDERED: chlordiazePOXIDE HCL 25 MG CAPSULE PO SCH (17:00)
[2018-10-10 17:15] VITALS: BP 104/60; PULSE 78; TEMP 98.3
--- NOTE | 2018-10-10 18:35 | DS ---
[facility] Detox Discharge Summary Admission Date: 10/09/18 Discharge Date: 10/10/18 - History Present History: Alcohol Dependence, Cocaine Dependence - Physical Exam Results Vital Signs: Vital Signs Temperature 98.3 F 10/10/18 17:14 Pulse Rate 78 10/10/18 17:14 Respiratory Rate 18 10/10/18 17:14 Blood Pressure 104/60 10/10/18 17:14 O2 Sat by Pulse Oximetry (%) - Treatment Hospital Course: Detox Protocol Followed - Medication Discharge Medications: Ambulatory Orders Quetiapine Fumarate [Seroquel -] 100 mg PO HS 08/03/18 - AMA Did Patient Leave Against Medical Advice: Yes (pt states she only came to get out of cold and now wants to mynor)
[2018-10-11] MEDS ORDERED: METHADONE HCL 5 MG TABLET (FOR DETOX USE ONLY) PO SCH (10:00)
[2018-10-11] MEDS ORDERED: chlordiazePOXIDE 5 MG CAPSULE PO SCH (17:00)
[2018-10-12] MEDS ORDERED: METHADONE HCL 10 MG TABLET (FOR DETOX USE ONLY) PO SCH (10:00)
[2018-10-12] MEDS ORDERED: chlordiazePOXIDE HCL 10 MG CAPSULE PO SCH (17:00)
[2018-10-13] MEDS ORDERED: METHADONE HCL 5 MG TABLET (FOR DETOX USE ONLY) PO SCH (06:00)
== END 2018-10-10 18:58 | disposition left against medical advice (07) | DRG 770 ==
LOC: YASAS 08:18 → Y3N 10:49
PROVIDERS: ADMIT Neuromusculoskeletal Medicine & OMM; ATTEND Neuromusculoskeletal Medicine & OMM
PROC: HZ2ZZZZ Detoxification Services for Substance Abuse Treatment (ICD-10-PCS; principal; 2018-10-09)
DX: F11.23 Opioid dependence with withdrawal (principal); F10.230 Alcohol dependence with withdrawal, uncomplicated; F14.20 Cocaine dependence, uncomplicated; F17.210 Nicotine dependence, cigarettes, uncomplicated; D64.9 Anemia, unspecified; M54.5 Low back pain; G89.29 Other chronic pain; Z86.32 Personal history of gestational diabetes; Z59.0 Homelessness
CPT/HCPCS: 36415; 80053; 85027; 86593; 93005; 93010

== ENCOUNTER 2020-08-27 16:13 | Inpatient (IN) | payer OTHER ==
[2020-08-27 17:00] VITALS: BMI 24.6
[2020-08-27] MEDS ORDERED: BISMUTH SUBSALICYLATE 524 MG/30 ML UD PO PRN (17:36)
[2020-08-27] MEDS ORDERED: MAGNESIUM HYDROX 2400MG/30ML ORAL SUSPENSION 30 ML CUP PO PRN (17:36)
[2020-08-27] MEDS ORDERED: MENTHOL/PHENOL 1 EACH UD MM PRN (17:36)
[2020-08-27] MEDS ORDERED: IBUPROFEN 400 MG TABLET (FP) PO PRN (17:36)
[2020-08-27] MEDS ORDERED: MAGNESIUM CITRATE 300 ML BOTTLE PO PRN (17:36)
[2020-08-27] MEDS ORDERED: NICOTINE POLACRILEX 2 MG GUM BUC PRN (17:36)
[2020-08-27] MEDS ORDERED: MAG HYDROX/AL HYDROX/SIMETH 30 ML UNIT-DOSE CUP PO PRN (17:36)
[2020-08-27] MEDS ORDERED: ACETAMINOPHEN 325 MG TABLET (FP) PO PRN ×2 (17:36)
[2020-08-27] MEDS ORDERED: diazePAM 5 MG TABLET PO PRN (17:38)
[2020-08-27] MEDS ORDERED: diazePAM 5 MG TABLET PO ONE (19:00)
[2020-08-27] MEDS: THIAMINE HCL 100 MG TABLET (FP) PO SCH (22:30)
[2020-08-27] MEDS: diazePAM 5 MG TABLET PO SCH (22:30)
[2020-08-27] MEDS: MELATONIN 5 MG TABLETS PO PRN (22:32)
[2020-08-27] MEDS ORDERED: hydrOXYzine PAMOATE 25 MG CAPSULE (FP) PO ONE (22:52)
[2020-08-27] MEDS ORDERED: COLLOIDAL OATMEAL 1 BAR EACH TP PRN (23:39)
[2020-08-28] MEDS: METHOCARBAMOL 500 MG TABLET PO PRN ×2 (01:48→17:34)
[2020-08-28] MEDS: diazePAM 5 MG TABLET PO SCH ×4 (06:11→22:24)
[2020-08-28] MEDS ORDERED: METHADONE HCL 40 MG DISPERSABLE TABLET PO SCH (09:15)
[2020-08-28] MEDS ORDERED: METHADONE 80 MG, METHADONE 30 MG PO ONE (09:30)
[2020-08-28] MEDS ORDERED: METHADONE HCL 10 MG TABLET ONE (09:44)
[2020-08-28] MEDS ORDERED: METHADONE HCL 40 MG DISPERSABLE TABLET ONE (09:45)
[2020-08-28 10:32] LABS: HEMATOCRIT 30.6 % (32.4-45.2); HEMOGLOBIN 9.5 GM/dL (10.7-15.3); MCH 25.6 pg (25.7-33.7); MCHC 31.1 g/dl (32.0-36.0); MEAN CELL VOLUME 82.2 fl (80-96); MEAN PLT VOLUME 9.7 fl (7.5-11.1); PLATELET COUNT 223 K/MM3 (134-434); RBC 3.72 M/mm3 (3.60-5.2); RDW 19.9 % (11.6-15.6); WHITE BLOOD COUNT 4.4 K/mm3 (4.0-10.0)
[2020-08-28] MEDS: PRENATAL VITAMINS W/ FOLIC ACID TABLET (FP) PO SCH (10:33)
[2020-08-28 10:37] LABS: POTASSIUM 4.2 mmol/L (3.5-5.1)
[2020-08-28 10:47] LABS: ALBUMIN 3.4 g/dl (3.4-5.0); BLOOD UREA NITROGEN 30.4 mg/dL (7-18)
[2020-08-28 10:50] LABS: CREATININE 1.5 mg/dL (0.55-1.3)
[2020-08-28 10:51] LABS: BILIRUBIN,TOTAL 0.2 mg/dL (0.2-1)
[2020-08-28] MEDS: QUEtiapine FUMARATE 50 MG TABLET PO SCH (22:23)
[2020-08-28] MEDS: THIAMINE HCL 100 MG TABLET (FP) PO SCH (22:23)
[2020-08-29] MEDS ORDERED: METHADONE HCL 10 MG TABLET ONE (05:03)
[2020-08-29] MEDS ORDERED: METHADONE HCL 40 MG DISPERSABLE TABLET ONE (05:04)
[2020-08-29] MEDS: METHADONE 80 MG, METHADONE 30 MG PO SCH (06:16)
[2020-08-29] MEDS: diazePAM 5 MG TABLET PO SCH ×3 (06:16→22:12)
[2020-08-29] MEDS: PRENATAL VITAMINS W/ FOLIC ACID TABLET (FP) PO SCH (09:18)
[2020-08-29 09:28] LABS: HEMATOCRIT 31.5 % (32.4-45.2); HEMOGLOBIN 9.9 GM/dL (10.7-15.3); MCH 25.8 pg (25.7-33.7); MCHC 31.4 g/dl (32.0-36.0); MEAN CELL VOLUME 82.1 fl (80-96); MEAN PLT VOLUME 9.5 fl (7.5-11.1); PLATELET COUNT 205 K/MM3 (134-434); RBC 3.84 M/mm3 (3.60-5.2); WHITE BLOOD COUNT 4.6 K/mm3 (4.0-10.0)
[2020-08-29 09:51] LABS: POTASSIUM 4.6 mmol/L (3.5-5.1)
[2020-08-29 10:12] LABS: CALCIUM 9.1 mg/dL (8.5-10.1)
[2020-08-29 10:13] LABS: ALBUMIN 3.4 g/dl (3.4-5.0); BLOOD UREA NITROGEN 24.2 mg/dL (7-18)
[2020-08-29 10:17] LABS: BILIRUBIN,TOTAL 0.3 mg/dL (0.2-1); TOT PROT 8.2 g/dl (6.4-8.2)
[2020-08-29] MEDS: THIAMINE HCL 100 MG TABLET (FP) PO SCH (22:12)
[2020-08-29] MEDS: QUEtiapine FUMARATE 50 MG TABLET PO SCH (22:12)
[2020-08-30] MEDS ORDERED: METHADONE HCL 10 MG TABLET ONE (04:31)
[2020-08-30] MEDS ORDERED: METHADONE HCL 40 MG DISPERSABLE TABLET ONE (04:32)
[2020-08-30] MEDS: METHADONE 80 MG, METHADONE 30 MG PO SCH (06:09)
[2020-08-30] MEDS: diazePAM 5 MG TABLET PO SCH ×2 (06:09→17:12)
[2020-08-30] MEDS ORDERED: SIMETHICONE 80 MG TAB.CHEW (FP) PO ONE (08:00)
[2020-08-30] MEDS: PRENATAL VITAMINS W/ FOLIC ACID TABLET (FP) PO SCH (09:28)
[2020-08-30] MEDS: MELATONIN 5 MG TABLETS PO PRN (22:16)
[2020-08-30] MEDS: THIAMINE HCL 100 MG TABLET (FP) PO SCH (22:16)
[2020-08-30] MEDS: QUEtiapine FUMARATE 50 MG TABLET PO SCH (22:16)
[2020-08-31] MEDS ORDERED: METHADONE HCL 10 MG TABLET ONE (04:52)
[2020-08-31] MEDS ORDERED: METHADONE HCL 40 MG DISPERSABLE TABLET ONE (04:53)
[2020-08-31] MEDS: METHADONE 80 MG, METHADONE 30 MG PO SCH (05:53)
[2020-08-31] MEDS ORDERED: diazePAM 5 MG TABLET PO ONE (06:00)
[2020-08-31] MEDS: PRENATAL VITAMINS W/ FOLIC ACID TABLET (FP) PO SCH (09:09)
[2020-08-31 09:18] VITALS: BP 107/71; PULSE 82; TEMP 98.8
== END 2020-08-31 11:17 | disposition other institution (70) | DRG 773 ==
LOC: YASAS 16:13 → Y3N 18:41 → UNDODISIN 08-31 09:40
PROVIDERS: ADMIT Allergy & Immunology; ATTEND Allergy & Immunology
PROC: HZ2ZZZZ Detoxification Services for Substance Abuse Treatment (ICD-10-PCS; principal; 2020-08-27)
DX: F10.230 Alcohol dependence with withdrawal, uncomplicated (principal); F11.20 Opioid dependence, uncomplicated; F14.20 Cocaine dependence, uncomplicated; F17.210 Nicotine dependence, cigarettes, uncomplicated; F19.24 Other psychoactive substance dependence with psychoactive substance-induced mood disorder; F19.282 Other psychoactive substance dependence with psychoactive substance-induced sleep disorder; F50.9 Eating disorder, unspecified; R79.89 Other specified abnormal findings of blood chemistry; R73.09 Other abnormal glucose; Z59.0 Homelessness
CPT/HCPCS: 36415; 80053; 81025; 82947; 85027; 86780; C9803; U0003

== ENCOUNTER 2020-08-31 11:46 | Inpatient (IN) | payer OTHER ==
[2020-08-31] MEDS ORDERED: IBUPROFEN 400 MG TABLET (FP) PO PRN (12:25)
[2020-08-31] MEDS ORDERED: MENTHOL/PHENOL 1 EACH UD MM PRN (12:25)
[2020-08-31] MEDS ORDERED: NICOTINE POLACRILEX 2 MG GUM BUC PRN (12:25)
[2020-08-31] MEDS ORDERED: guaiFENesin 200 MG/10 ML 10 ML UNIT-DOSE CUPS PO PRN (12:25)
[2020-08-31] MEDS ORDERED: P-EPHED 60MG/TRIPROLIDI 2.5MG TABLET PO PRN (12:25)
[2020-08-31] MEDS ORDERED: ACETAMINOPHEN 325 MG TABLET (FP) PO PRN (12:25)
[2020-08-31] MEDS ORDERED: MAGNESIUM HYDROX 2400MG/30ML ORAL SUSPENSION 30 ML CUP PO PRN (12:25)
[2020-08-31] MEDS ORDERED: LOPERAMIDE HCL 2 MG CAPSULE PO PRN (12:25)
[2020-08-31] MEDS ORDERED: MAGNESIUM CITRATE 300 ML BOTTLE PO PRN (12:25)
[2020-08-31] MEDS: THIAMINE HCL 100 MG TABLET (FP) PO SCH (21:22)
[2020-08-31] MEDS: MELATONIN 5 MG TABLETS PO SCH (21:22)
[2020-08-31] MEDS ORDERED: MASKS NR ONE (21:23)
[2020-08-31] MEDS: QUEtiapine FUMARATE 50 MG TABLET PO SCH (21:23)
[2020-08-31] MEDS: hydrOXYzine PAMOATE 25 MG CAPSULE (FP) PO PRN (21:23)
[2020-09-01] MEDS ORDERED: METHADONE HCL 40 MG DISPERSABLE TABLET ONE (04:21)
[2020-09-01] MEDS ORDERED: METHADONE HCL 10 MG TABLET ONE (04:21)
[2020-09-01] MEDS ORDERED: METHADONE HCL 40 MG DISPERSABLE TABLET PO SCH (06:00)
[2020-09-01] MEDS: METHADONE 80 MG, METHADONE 30 MG PO SCH (06:53)
[2020-09-01] MEDS: hydrOXYzine PAMOATE 25 MG CAPSULE (FP) PO PRN ×3 (06:55→21:18)
[2020-09-01] MEDS: FERROUS SO4 325 MG TABLET (FP) PO SCH (09:32)
[2020-09-01] MEDS: PRENATAL VITAMINS W/ FOLIC ACID TABLET (FP) PO SCH (09:32)
[2020-09-01] MEDS ORDERED: NICOTINE 7 MG/24 HOURS TOPICAL PATCH TD SCH (10:00)
[2020-09-01] MEDS: THIAMINE HCL 100 MG TABLET (FP) PO SCH (21:18)
[2020-09-01] MEDS: QUEtiapine FUMARATE 50 MG TABLET PO SCH (21:18)
[2020-09-01] MEDS: MELATONIN 5 MG TABLETS PO SCH (21:18)
[2020-09-02] MEDS ORDERED: METHADONE HCL 40 MG DISPERSABLE TABLET ONE (05:11)
[2020-09-02] MEDS ORDERED: METHADONE HCL 10 MG TABLET ONE (05:11)
[2020-09-02] MEDS: METHADONE 80 MG, METHADONE 30 MG PO SCH (06:11)
[2020-09-02] MEDS: hydrOXYzine PAMOATE 25 MG CAPSULE (FP) PO PRN ×2 (06:12→10:21)
[2020-09-02] MEDS: MAG HYDROX/AL HYDROX/SIMETH 30 ML UNIT-DOSE CUP PO PRN ×2 (06:49→14:00)
[2020-09-02] MEDS: FERROUS SO4 325 MG TABLET (FP) PO SCH (09:18)
[2020-09-02] MEDS: PRENATAL VITAMINS W/ FOLIC ACID TABLET (FP) PO SCH (09:18)
[2020-09-02] MEDS: SIMETHICONE 80 MG TAB.CHEW (FP) PO PRN ×2 (19:03→23:07)
[2020-09-02] MEDS: MELATONIN 5 MG TABLETS PO SCH (21:37)
[2020-09-02] MEDS: QUEtiapine FUMARATE 50 MG TABLET PO SCH (21:37)
[2020-09-02] MEDS: THIAMINE HCL 100 MG TABLET (FP) PO SCH (21:38)
[2020-09-03] MEDS ORDERED: METHADONE HCL 40 MG DISPERSABLE TABLET ONE (04:54)
[2020-09-03] MEDS ORDERED: METHADONE HCL 10 MG TABLET ONE (04:55)
[2020-09-03] MEDS: METHADONE 80 MG, METHADONE 30 MG PO SCH (06:15)
[2020-09-03] MEDS: hydrOXYzine PAMOATE 25 MG CAPSULE (FP) PO PRN ×3 (06:17→21:37)
[2020-09-03] MEDS: SIMETHICONE 80 MG TAB.CHEW (FP) PO PRN ×3 (06:18→19:11)
[2020-09-03] MEDS: FERROUS SO4 325 MG TABLET (FP) PO SCH (09:53)
[2020-09-03] MEDS: PRENATAL VITAMINS W/ FOLIC ACID TABLET (FP) PO SCH (09:53)
[2020-09-03] MEDS ORDERED: PT OWN MED DRAWER 7, Y5N ONE (19:11)
[2020-09-03] MEDS: THIAMINE HCL 100 MG TABLET (FP) PO SCH (21:37)
[2020-09-03] MEDS: MELATONIN 5 MG TABLETS PO SCH (21:37)
[2020-09-03] MEDS: QUEtiapine FUMARATE 50 MG TABLET PO SCH (21:37)
[2020-09-04] MEDS ORDERED: METHADONE HCL 40 MG DISPERSABLE TABLET ONE (05:21)
[2020-09-04] MEDS ORDERED: METHADONE HCL 10 MG TABLET ONE (05:22)
[2020-09-04] MEDS: METHADONE 80 MG, METHADONE 30 MG PO SCH (06:28)
[2020-09-04] MEDS: hydrOXYzine PAMOATE 25 MG CAPSULE (FP) PO PRN (06:31)
[2020-09-04 06:58] VITALS: BP 103/70; PULSE 84; TEMP 98.1
[2020-09-04] MEDS: FERROUS SO4 325 MG TABLET (FP) PO SCH (09:20)
[2020-09-04] MEDS: PRENATAL VITAMINS W/ FOLIC ACID TABLET (FP) PO SCH (09:20)
== END 2020-09-04 09:50 | disposition home or self-care (01) | DRG 772 ==
LOC: YASAS 11:46 → Y3W 11:50
PROVIDERS: ADMIT Allergy & Immunology; ATTEND Allergy & Immunology
PROC: HZ42ZZZ Group Counseling for Substance Abuse Treatment, Cognitive-Behavioral (ICD-10-PCS; principal; 2020-08-31)
DX: F10.20 Alcohol dependence, uncomplicated (principal); F11.20 Opioid dependence, uncomplicated; F14.20 Cocaine dependence, uncomplicated; F17.210 Nicotine dependence, cigarettes, uncomplicated; D50.9 Iron deficiency anemia, unspecified; Z59.0 Homelessness